=== PATIENT | female | born 1990 | race Caucasian/White ===

== ENCOUNTER 2019-09-23 06:24 | Emergency (ER) | payer OTHER ==
[~2019-09-23] VITALS: Ht 167.6 cm; Wt 77.1 kg
[2019-09-23 06:30] VITALS: BP 129/81
--- NOTE | 2019-09-23 06:35 | NUR ---
PT AMBULATED TO ED BED 12
--- NOTE | 2019-09-23 06:40 | NUR ---
PT PRESENTS TO ED WITH C/O FLU LIKE SYMPTOMS SINCE FRIDAY. FEVER, HEADACHE, EAR PAIN, SORE THROAT. HEADACHE AND SORE THROAT WORSEN TODAY. TOOK TYLENOL 500 MG 1 HR AGO. DENIES PMH. PT AAO X4, GCS 15, AMBULATORY WITH STEADY GAIT. RESPIRATIONS EVEN AND UNLABORED, BL LUNG CLEAR. SKIN WARM/PINK/DRY, +PMSC. VS WNL, STATED HEADACHE AND SORE THROAT 04/07. ED PROVIDER MADE AWARE OF PT STATUS. WILL CONTINUE TO MONITOR
--- NOTE | 2019-09-23 06:42 | NUR ---
FLU SWAB COLLECTED
--- NOTE | 2019-09-23 07:16 | NUR ---
PT AMBULATED TO RESTROOM
[2019-09-23 07:35] VITALS: BP 129/81
--- NOTE | 2019-09-23 07:35 | NUR ---
Patient discharged with v/s stable. Written and verbal after care instructions given and explained. Patient alert, oriented and verbalized understanding of instructions. Ambulatory with steady gait. All questions addressed prior to discharge. ID band removed. Patient advised to follow up with PMD. Rx of CODEINE PHOSPHATE given. Patient educated on indication of medication including possible reaction and side effects. Opportunity to ask questions provided and answered.
== END 2019-09-23 07:35 | disposition home or self-care (01) ==
LOC: MED 06:24
DX: J11.1 Influenza due to unidentified influenza virus with other respiratory manifestations (principal); Z88.0 Allergy status to penicillin
CPT/HCPCS: 87804; 99283